=== PATIENT | male | born 1965 | race Caucasian/White ===

== ENCOUNTER → 2017-09-02 | Outpatient (CLI) | payer BC ==
[~2017-09-02] MED LIST: ADVI200C5 PO; NEXI20CA PO
--- NOTE | 2017-09-02 21:01 | REP ---
Clinical: Pain. Technique: AP, lateral, bilateral oblique views of the right ankle. Findings: The patient is status post open reduction and fixation for fibular and tibial air fractures. Post traumatic arthritic changes are appreciated. No acute fracture or dislocation. Ankle mortise appears intact. No significant soft tissue swelling. Lateral view demonstrates moderate calcaneal heal spur. Impression: Post traumatic arthritic changes. No acute fracture dislocation. Signed by Stefano Barrera MD 09/02/2017 08:53 P
== END ==
LOC: M WUC 19:17
PROVIDERS: ATTEND Physician Assistant
DX: M25.571 Pain in right ankle and joints of right foot (principal)

== ENCOUNTER → 2017-10-03 | Outpatient (REF) | payer BC | LOC: M LAB REF 16:07 | DX: M06.9 Rheumatoid arthritis, unspecified (principal) | CPT/HCPCS: 86140 ==

== ENCOUNTER → 2019-04-13 | Outpatient (REF) | payer BC, OTHER | LOC: M LAB REF 15:07 | PROVIDERS: ATTEND Surgery | DX: L72.12 Trichodermal cyst (principal) ==

== ENCOUNTER → 2019-05-03 | Outpatient (CLI) | payer OTHER ==
--- NOTE | 2019-05-03 10:51 | REP ---
Clinical: Nontraumatic bilateral hip pain. Technique: neutral and frog lateral views of the right and left hip. Findings: Osseous structures and joint spaces are intact and normal for age. Hip joints appear symmetric. No acute fracture dislocation. No evidence for healed injury. No significant degenerative or congenital abnormalities are appreciated. Surrounding soft tissues are unremarkable. Impression: Normal symmetric age appropriate appearance to the bilateral hip joints Electronically Signed by Stefano Barrera MD 05/03/2019 10:42 A
== END ==
LOC: M RAD 09:56
PROVIDERS: ATTEND Nurse Practitioner Adult Health
DX: M25.551 Pain in right hip (principal); M25.552 Pain in left hip

== ENCOUNTER → 2019-05-05 | Outpatient (CLI) | payer OTHER ==
--- NOTE | 2019-05-05 16:00 | REP ---
Clinical: Lumbar pain extending to the lower extremities. Technique: AP, lateral, bilateral oblique and coned-down views of the lumbosacral spine. Findings: Moderate multilevel degenerative changes includes endplate sclerosis, marginal spurring/early osteophyte formation, disc space narrowing, and hypertrophic facet changes. No acute fracture / compression injury or subluxation. Impression: Moderate multilevel degenerative spondylosis. Electronically Signed by Stefano Barrera MD 05/05/2019 03:52 P
== END ==
LOC: M RAD 15:29
PROVIDERS: ATTEND Nurse Practitioner Adult Health
DX: M47.897 Other spondylosis, lumbosacral region (principal); M25.559 Pain in unspecified hip; M79.606 Pain in leg, unspecified

== ENCOUNTER → 2020-10-30 | Outpatient (REF) | payer BC, OTHER | LOC: M LAB REF 16:09 | PROVIDERS: ATTEND Nurse Practitioner Adult Health | DX: N52.9 Male erectile dysfunction, unspecified (principal) ==

== ENCOUNTER → 2021-02-06 | Outpatient (REF) | payer BC | LOC: M LAB REF 16:23 | PROVIDERS: ATTEND Internal Medicine | DX: N52.9 Male erectile dysfunction, unspecified (principal) ==

== ENCOUNTER 2021-02-14 05:45 | Emergency (ER) | payer BC ==
[~2021-02-14] VITALS: Ht 172.7 cm; Wt 126.6 kg
--- NOTE | 2021-02-14 07:11 | REPVR ---
PROCEDURE INFORMATION: Exam: XR Right Tibia and Fibula Exam date and time: 02/14/2021 6:45 AM Age: 55 years old Clinical indication: Pain; Lower leg; Right; Prior surgery; Surgery date: 6+ months; Surgery type: Ankle; Additional info: "pop" pain when walking, HX orif TECHNIQUE: Imaging protocol: XR Right tibia and fibula. Views: 2 views. COMPARISON: No relevant prior studies available. FINDINGS: Bones/joints: No acute bony injury or malalignment in the visualized right lower leg. Surgical hardware and remodeling deformities in the distal tibia and fibula. Mild degenerative change. Calcaneal spur. Soft tissues: Contour irregularity in the distal soft tissues. IMPRESSION: No acute bony injury or malalignment in the visualized right lower leg. Electronically signed by: Chester Morris On 02/14/2021 07:10:57 AM
[2021-02-14 07:23] VITALS: BP 179/113
== END 2021-02-14 07:27 | disposition home or self-care (01) ==
LOC: M ED 05:45
DX: S86.001A Unspecified injury of right Achilles tendon, initial encounter (principal); Y92.9 Unspecified place or not applicable; Y93.01 Activity, walking, marching and hiking; Y99.9 Unspecified external cause status; Z88.0 Allergy status to penicillin

== ENCOUNTER → 2021-11-20 | Outpatient (REF) | payer BC | LOC: M LAB REF 11:48 | PROVIDERS: ATTEND Internal Medicine | DX: M25.50 Pain in unspecified joint (principal); E78.00 Pure hypercholesterolemia, unspecified ==

== ENCOUNTER → 2022-07-24 | Outpatient (CLI) | payer BC | LOC: M WUC 09:19 | PROVIDERS: ATTEND Physician Assistant | DX: S39.012A Strain of muscle, fascia and tendon of lower back, initial encounter (principal); W18.30XA Fall on same level, unspecified, initial encounter; Y92.009 Unspecified place in unspecified non-institutional (private) residence as the place of occurrence of the external cause ==

== ENCOUNTER → 2023-04-23 | Outpatient (REF) | LOC: M PLAIMG 13:57 | PROVIDERS: ATTEND Internal Medicine | DX: R52 Pain, unspecified (principal) ==

== ENCOUNTER → 2024-09-23 | Outpatient (CLI) | payer OTHER | LOC: M WUC 08:52 | PROVIDERS: ATTEND Urology | DX: N28.1 Cyst of kidney, acquired (principal) ==